=== PATIENT | female | born 2000 ===

== ENCOUNTER 2022-10-04 01:45 | Emergency (ER) | payer SELFPAY ==
[2022-10-04] MEDS: Sodium Chloride 0.9% 10 ML Syringe FLUSH PRN (02:49)
[2022-10-04 02:56] LABS: BASOPHILS ABSOLUTE AUTO 0.02 10^3/uL (0.00-0.10); BASOPHILS PERCENT AUTO 0.3 % (0.0-1.0); EOSINOPHILS ABSOLUTE AUTO 0.05 10^3/uL (0.10-0.30); EOSINOPHILS PERCENT AUTO 0.9 % (1.0-3.0); HEMATOCRIT 42.1 % (37.0-47.0); HEMOGLOBIN 13.8 g/dL (12.0-16.0); IMMATURE GRAN ABSOLUTE AUTO 0.02 10^3/uL (0.00-0.50); IMMATURE GRAN PERCENT AUTO 0.3 % (0.0-5.0); LYMPHOCYTES ABSOLUTE AUTO 1.39 10^3/uL (1.00-4.00); MEAN CORPUSCULAR HEMOGLOBIN 27.3 pg (27.0-31.0); MEAN CORPUSCULAR HGB CONC 32.8 g/dL (32.0-36.0); MEAN CORPUSCULAR VOLUME 83.4 fL (82.0-92.0); MEAN PLATELET VOLUME 9.6 fL (7.4-10.4); MONOCYTES ABSOLUTE AUTO 0.36 10^3/uL (0.10-0.80); MONOCYTES PERCENT AUTO 6.2 % (2.0-8.0); NEUTROPHILS ABSOLUTE AUTO 3.95 10^3/uL (2.50-7.00); NEUTROPHILS PERCENT AUTO 68.3 % (50.0-70.0); PLATELET COUNT,PLT 156 10^3/uL (150-400); RED BLOOD CELL COUNT 5.05 10^6/uL (3.80-5.50); RED CELL DISTRIBUTION WIDTH 12.4 % (11.5-14.5); WHITE BLOOD CELL COUNT,WBC 5.79 10^3/uL (5.00-10.00)
[2022-10-04] MEDS: Ondansetron 4 MG/2 ML SDV IVPUSH ONE (02:56)
[2022-10-04] MEDS: Sodium Chloride 0.9% 1,000 ML IV ONE (03:04)
[2022-10-04 03:09] LABS: ANION GAP 13.5 mmol/L (5-15); CALCIUM 8.7 mg/dL (8.7-10.3); CARBON DIOXIDE,CO2 27.3 mmol/L (21.0-32.0); CREATININE 0.51 mg/dL (0.51-1.17); POTASSIUM,K 3.8 mmol/L (3.5-5.1)
[2022-10-04 03:13] LABS: AMPHETAMINES SCREEN, URINE NEGATIVE (NEGATIVE); BARBITURATE SCREEN,URINE NEGATIVE (NEGATIVE); BENZODIAZEPINES SCREEN,URINE NEGATIVE (NEGATIVE); COCAINE METABOLITES,URINE NEGATIVE (NEGATIVE); METHADONE SCREEN, URINE NEGATIVE (NEGATIVE); METHAMPHETAMINES SCREEN, URINE NEGATIVE (NEGATIVE); OXYCODONE SCREEN,URINE NEGATIVE (NEGATIVE); PCP SCREEN,URINE NEGATIVE (NEGATIVE); PROPOXYPHENE SCREEN,URINE NEGATIVE (NEGATIVE); TCA SCREEN,URINE NEGATIVE (NEGATIVE)
[2022-10-04 03:14] LABS: THC SCREEN,URINE 50 NG/ML NEGATIVE (NEGATIVE)
== END 2022-10-04 04:23 | disposition home or self-care (01) ==
LOC: KA.ED 01:45
DX: F10.920 Alcohol use, unspecified with intoxication, uncomplicated (principal)
CPT/HCPCS: 36415; 80048; 80305-QW; 80307; 85025; 96361; 96374; 99283; 99285-25; J2405; J3490; J7030